=== PATIENT | female | born 1995 | race Caucasian/White ===

== ENCOUNTER 2017-08-18 17:46 | Emergency (ER) | payer BC, OTHER ==
--- NOTE | 2017-08-18 18:43 | EDM.PDOC ---
ED HPI GENERAL MEDICAL PROBLEM - General Chief Complaint: Allergic Reaction Stated Complaint: REACTION TO NUT ALLERGY Time Seen by Provider: 08/18/17 17:56 Source of Information: Reports: Patient History Limitations: Reports: No Limitations - History of Present Illness INITIAL COMMENTS - FREE TEXT/NARRATIVE: The patient states that she was eating dinner at a restaurant around 17:30, a meal that included a cheese plate that may have had nuts on it, when she developed the sensation of her throat closing. 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 She has been to the ER for these types of reactions in the past , but has only been treated with Benadryl, not steroids or epinephrine. She states that she has an EpiPen, but has never needed to give it to herself. She states that she saw an Professional Housing Consultant many years ago and had skin tests performed, indicating an allergy to tree nuts and peanuts, however, she has had not previously had antibody testing done. At present, the patient denies pruritus, dyspnea, wheezing, or GI symptoms. She did not take any medication prior to coming to the ED. The patient's PCP is Dr. Nancy Perez. - Related Data Allergies Allergy/AdvReac Type Severity Reaction Status Date / Time animal dander Allergy Airway Verified 08/18/17 18:03 Tightness nut - unspecified Allergy Airway Verified 08/18/17 18:03 Tightness Home Meds: Home Meds Levalbuterol Tartrate [Xopenex Hfa] 15 gm IH ASDIRECTED 08/18/17 [History] Past Medical History HEENT History: Reports: Impaired Vision Respiratory History: Reports: Asthma Gastrointestinal History: Reports: Irritable Bowel Syndrome - Past Surgical History Musculoskeletal Surgical History: Reports: Other (See Below) Other Musculoskeletal Surgeries/Procedures:: ACL reconstruction of left knee Social & Family History - Tobacco Use Smoking Status *Q: Never Smoker Second Hand Smoke Exposure: No - Caffeine Use Caffeine Use: Reports: None - Recreational Drug Use Recreational Drug Use: No ED ROS ALLERGIC REACTION - Review of Systems Review Of Systems: ROS reveals no pertinent complaints other than HPI. ED EXAM GENERAL NO PERIP PULSE - Physical Exam Exam: See Below Exam Limited By: No Limitations General Appearance: Alert, WD/WN, No Apparent Distress Eye Exam: Bilateral Eye: Normal Inspection Ears: Normal External Exam, Normal Canal, Hearing Grossly Normal, Normal TMs Nose: Normal Inspection, Normal Mucosa, No Blood Throat/Mouth: Normal Inspection, Normal Lips, Normal Teeth, Normal Gums, Normal Oropharynx (No uvular or oropharyngeal swelling), Normal Voice, No Airway Compromise Head: Atraumatic, Normocephalic Neck: Normal Inspection, Supple, Non-Tender, Full Range of Motion. No: Lymphadenopathy (L), Lymphadenopathy (R) Respiratory/Chest: No Respiratory Distress, Lungs Clear, Normal Breath Sounds, No Accessory Muscle Use. No: Wheezing Cardiovascular: Normal Peripheral Pulses, Regular Rate, Rhythm, No Gallop, No JVD, No Murmur, No Rub GI/Abdominal: Normal Bowel Sounds, Soft, Non-Tender, No Organomegaly, No Distention, No Abnormal Bruit, No Mass (Female) Exam: Deferred Rectal (Female) Exam: Deferred Back Exam: Normal Inspection, Full Range of Motion, NT Extremities: Normal Inspection, Normal Range of Motion, Non-Tender, Normal Capillary Refill, No Pedal Edema Neurological: Alert, Oriented, Normal Cognition, No Motor/Sensory Deficits Psychiatric: Normal Affect Skin Exam: Warm, Dry, Intact, Normal Color, No Rash. No: Rash Lymphatic: No Adenopathy Course - Vital Signs Last Recorded V/S: Last Vital Signs Temp 36.2 C 08/18/17 17:55 Pulse 80 08/18/17 17:55 Resp 15 08/18/17 17:55 BP 137/92 H 08/18/17 17:55 Pulse Ox 97 08/18/17 17:55 - Re-Assessments/Exams Free Text/Narrative Re-Assessment/Exam: 08/18/17 18:32 The patient reports the sensation of facial flushing and throat tightening after eating a cheese platter that may have had nuts, however, on physical examination, I find no physical abnormalities such as urticaria, angioedema, uvular swelling, or wheezing. She is not hypotensive, and she denies pruritus dyspnea, or GI symptoms. Whatever reaction the patient may be having, it does not appear to be an allergic reaction, and that was explained to the patient. I offered to refer her to an [employer]ant who could run definitive antibody test, however, the patient declined. The patient seems somewhat upset with my explanation, even though I explained that not having an allergic reaction to nuts is a good thing. Departure - Departure Time of Disposition: 18:33 Disposition: Home, Self-Care 01 Condition: Good Clinical Impression: Facial flushing, Sensation of swollen throat - Discharge Information Referrals: Nancy Perez DO [Physician] - Additional Instructions: You were seen in the emergency room after developing facial flushing and the sensation of throat swelling after possibly eating nuts. On evaluation, none of the cardinal signs of an allergic reaction, including itchy hives, oral pharyngeal swelling, or wheezing were found. It is not clear what reaction he may be having, but it does not appear to be an allergic reaction. If any other problems, please do not hesitate to return to the ER.
== END 2017-08-18 18:57 | disposition home or self-care (01) ==
LOC: JD.ED 17:46
DX: J39.2 Other diseases of pharynx (principal); R23.2 Flushing; J45.909 Unspecified asthma, uncomplicated; Z91.048 Other nonmedicinal substance allergy status
CPT/HCPCS: 99282; 99283